=== PATIENT | male | born 1990 | race Caucasian/White ===

== ENCOUNTER 2016-07-10 16:13 | Inpatient (IN) | payer OTHER ==
[2016-07-10 17:08] VITALS: BMI 22.1
--- NOTE | 2016-07-10 18:07 | HP ---
COWS - Scale Resting Pulse: 0= [place] 80 or Below Sweatin= Chills/Flushing Restless Observation: 1= Difficult to Sit Still Pupil Size: 1= Pupils >than Normal Bone or Joint Aches: 1= Mild Discomfort Runny Nose/ Eye Tearin= Nasal Congestion GI Upset > 30mins: 2= Nausea/Diarrhea Tremor Observation: 2= Slight Tremor Visible Yawning Observation: 0= None Anxiety or Irritability: 2=Irritable/Anxious Goose Flesh Skin: 3=Piloerection COWS Score: 14 Admission ROS [facility] Chief Complaint: withdrawal sx Allergies/Adverse Reactions: Allergies Allergy/AdvReac Type Severity Reaction Status Date / Time No Known Allergies Allergy Verified 07/10/16 18:05 History of Present Illness: 25 years old male with long history of opiate nicotine dependence has muscle cramping and anxiety is admitted to detox Exam Limitations: No Limitations - Ebola screening Have you traveled outside of the country in the last 21 days: No Have you had contact with anyone from an Ebola affected area: No Have you been sick,other than usual withdrawal symptoms: No Do you have a fever: No - Review of Systems Constitutional: Chills, Loss of Appetite, Changes in sleep, Unintentional Wgt. Loss, Unexplained wgt Loss EENT: reports: No Symptoms Reported Respiratory: reports: SOB with Exertion, Productive cough (whitish) Cardiac: reports: No Symptoms Reported GI: reports: Diarrhea, Nausea, Poor Appetite, Poor Fluid Intake, Abdominal cramping : reports: No Symptoms Reported Musculoskeletal: reports: Back Pain, Joint Pain, Muscle Pain, Neck Pain Integumentary: reports: No Symptoms Reported Neuro: reports: Tremors Endocrine: reports: No Symptoms Reported Hematology: reports: No Symptoms Reported Psychiatric: reports: Judgement Intact, Orientated x3, Anxious Other Systems: Reviewed and Negative Patient History - Patient Medical History Hx Anemia: No Hx Asthma: No Hx Chronic Obstructive Pulmonary Disease (COPD): No Hx Cancer: No Hx Cardiac Disorders: No Hx Congestive Heart Failure: No Hx Hypertension: No Hx Hypercholesterolemia: No Hx Pacemaker: No HX Cerebrovascular Accident: No Hx Seizures: No Hx Dementia: No Hx Diabetes: No Hx Gastrointestinal Disorders: No Hx Liver Disease: No Hx Genitourinary Disorders: No Hx Sexually Transmitted Disorders: No Hx Renal Disease (ESRD): No Hx Thyroid Disease: No Hx Human Immunodeficiency Virus (HIV): No Hx Hepatitis C: No Hx Depression: Yes (anxiety) Hx Suicide Attempt: No Hx Bipolar Disorder: No Hx Schizophrenia: No - Patient Surgical History Past Surgical History: No Hx Neurologic Surgery: No Hx Cataract Extraction: No Hx Cardiac Surgery: No Hx Lung Surgery: No Hx Breast Surgery: No Hx Breast Biopsy: No Hx Abdominal Surgery: No Hx Appendectomy: No Hx Cholecystectomy: No Hx Genitourinary Surgery: No Hx Orthopedic Surgery: No - PPD History Previous Implant?: Yes Documented Results: Negative w/proof Implanted On Prior R Admission?: Yes Date: 03/15/15 PPD to be Administered?: Yes - Smoking Cessation Smoking history: Current every day smoker Have you smoked in the past 12 months: Yes Aproximately how many cigarettes per day: 10 Cigars Per Day: 0 Hx Chewing Tobacco Use: No Initiated information on smoking cessation: Yes 'Breaking Loose' booklet given: 07/10/16 - Substance & Tx. History Hx Alcohol Use: No Hx Substance Use: Yes Substance Use Type: Opiates Hx Substance Use Treatment: Yes - Substances Abused Heroin Route: Inhalation Frequency: Daily Amount used: 10 bags Age of first use: 22 Date of Last Use: 07/09/16 Family Disease History - Family Disease History Family Disease History: Diabetes: Mother, Heart Disease: Father (stents), Other : Brother (opiate) Admission Physical Exam BHS - Vital Signs Vital Signs: Vital Signs - 24 hr 07/10/16 17:05 Temperature 98.5 F Pulse Rate 173 H Respiratory 20 Rate Blood Pressure 108/61 - Physical General Appearance: Yes: Appropriately Dressed, Mild Distress, Thin, Tremorous, Irritable, Sweating, Anxious HEENTM: Yes: Hearing grossly Normal, Normal ENT Inspection, Normocephalic, Normal Voice Respiratory: Yes: Chest Non-Tender, Lungs Clear, Normal Breath Sounds, No Respiratory Distress, No Accessory Muscle Use Neck: Yes: Supple, Trachea in good position Breast: Yes: Breasts Symetrical Cardiology: Yes: Regular Rhythm, S1, S2, Tachycardia Abdominal: Yes: Non Tender, Soft, Increased Bowel Sounds Genitourinary: Yes: Within Normal Limits Back: Yes: Normal Inspection Musculoskeletal: Yes: full range of Motion, Gait Steady Extremities: Yes: Normal Range of Motion, Non-Tender, Tremors Neurological: Yes: Fully Oriented, Alert, Motor Strength 5/5, Normal Response, Depressed Affect Integumentary: Yes: Warm, Clammy, Track Power (right and left inner elbows) Lymphatic: Yes: Within Normal Limits - Diagnostic (1) Anxiety Current Visit: Yes Status: Suspected (2) Nicotine dependence Current Visit: Yes Status: Acute Qualifiers: Nicotine product type: cigarettes Substance use status: in withdrawal Qualified Code(s): F17.213 - Nicotine dependence, cigarettes, with withdrawal (3) Opioid dependence with withdrawal Current Visit: Yes Status: Acute (4) Weight loss Current Visit: Yes Status: Acute Cleared for Admission [facility] - Detox or Rehab [facility] Level of Care: Medically Managed Detox Regimen/Protocol: Methadone [facility] Breath Alcohol Content Breath Alcohol Content: 0 Urine Drug Screen - Results Drug Screen Negative: No Urine Drug Screen Results: OPI-Opiates
[2016-07-10] MEDS ORDERED: guaiFENesin/D-METHORPHAN HB 10 ML UNIT-DOSE CUPS PO PRN (18:16)
[2016-07-10] MEDS ORDERED: ACETAMINOPHEN 325 MG TABLET (FP) PO PRN (18:16)
[2016-07-10] MEDS ORDERED: MAG HYDROX/AL HYDROX/SIMETH 30 ML UNIT-DOSE CUP PO PRN (18:16)
[2016-07-10] MEDS ORDERED: MENTHOL/PHENOL 1 EACH UD MM PRN (18:16)
[2016-07-10] MEDS ORDERED: IBUPROFEN 400 MG TABLET (FP) PO PRN (18:16)
[2016-07-10] MEDS ORDERED: METHADONE HCL 10 MG TABLET (FOR DETOX USE ONLY) PO ONE ×2 (18:16→23:00)
[2016-07-10] MEDS ORDERED: MAGNESIUM HYDROX 2400MG/30ML ORAL SUSPENSION 30 ML CUP PO PRN (18:16)
[2016-07-10] MEDS ORDERED: MAGNESIUM CITRATE 300 ML BOTTLE PO PRN (18:16)
[2016-07-10] MEDS ORDERED: diphenhydrAMINE HCL 50 MG CAPSULE PO PRN (18:16)
[2016-07-10] MEDS ORDERED: P-EPHED 60MG/TRIPROLIDI 2.5MG TABLET PO PRN (18:16)
[2016-07-10] MEDS ORDERED: LOPERAMIDE HCL 2 MG CAPSULE PO PRN (18:16)
[2016-07-10] MEDS: diazePAM 5 MG TABLET PO PRN (19:05)
[2016-07-10] MEDS: CYCLOBENZAPRINE HCL 10 MG TABLET (FP) PO SCH (19:06)
[2016-07-10] MEDS: THIAMINE HCL 100 MG TABLET (FP) PO SCH (23:00)
[2016-07-11] MEDS: CYCLOBENZAPRINE HCL 10 MG TABLET (FP) PO SCH ×3 (03:40→18:02)
[2016-07-11] MEDS: diazePAM 5 MG TABLET PO PRN ×4 (05:20→20:56)
[2016-07-11] MEDS: NICOTINE POLACRILEX 2 MG GUM BC PRN (09:23)
[2016-07-11 09:50] LABS: MCH 28.5 pg (25.7-33.7); MCHC 33.4 g/dl (32.0-35.9); MEAN CELL VOLUME 85.3 fl (80-96); MEAN PLT VOLUME 9.1 fl (7.5-11.1); PLATELET COUNT 234 K/MM3 (134-434); RDW 13.5 % (11.9-15.9); WHITE BLOOD COUNT 7.4 K/mm3 (4.0-10.0)
[2016-07-11] MEDS ORDERED: METHADONE HCL 10 MG TABLET (FOR DETOX USE ONLY) PO ONE (10:00)
[2016-07-11] MEDS: PRENATAL VITAMINS W/ FOLIC ACID TABLET (FP) PO SCH (10:57)
[2016-07-11] MEDS: NICOTINE 14 MG/24 HOURS TOPICAL PATCH TD SCH (10:58)
--- NOTE | 2016-07-11 11:48 | PN ---
S COWS - Scale Resting Pulse: 0= [place] 80 or Below Sweatin= Chills/Flushing Restless Observation: 3= Extraneous Movement Pupil Size: 2= Moderately Dilated Bone or Joint Aches: 4=Acute Joint/Muscle Pain Runny Nose/ Eye Tearin= Nasal Congestion GI Upset > 30mins: 1= Stomach Cramp Tremor Observation of Outstretched Hands: 2= Slight Tremor Visible Yawning Observation: 1= 1-2x During Session Anxiety or Irritability: 1=Feels Anxious/Irritable Goose Flesh Skin: 0=Smooth Skin COWS Score: 16 BHS Progress Note (SOAP) Subjective: ANXIETY,SWEATS,FATIGUE. Objective: 07/11/16 11:49 Vital Signs Temperature 95.9 F L 07/11/16 06:32 Pulse Rate 61 07/11/16 10:19 Respiratory Rate 18 07/11/16 10:19 Blood Pressure 107/60 07/11/16 10:19 O2 Sat by Pulse Oximetry (%) Laboratory Last Values WBC 7.4 K/mm3 (4.0-10.0) 07/11/16 07:00 RBC 5.29 M/mm3 (4.00-5.60) 07/11/16 07:00 Hgb 15.1 GM/dL (11.7-16.9) 07/11/16 07:00 Hct 45.1 % (35.4-49) 07/11/16 07:00 MCV 85.3 fl (80-96) 07/11/16 07:00 MCHC 33.4 g/dl (32.0-35.9) 07/11/16 07:00 RDW 13.5 % (11.9-15.9) 07/11/16 07:00 Plt Count 234 K/MM3 (134-434) D 07/11/16 07:00 MPV 9.1 fl (7.5-11.1) D 07/11/16 07:00 RPR Titer Nonreactive (NONREACTIVE) 07/11/16 07:00 Assessment: 07/11/16 11:49 WITHDRAWAL SX Plan: CONTINUE DETOX
[2016-07-11 12:04] LABS: ALBUMIN 3.7 g/dl (3.4-5.0); ALK PHOS 104 U/L (45-117); ANION GAP 8 (8-16); BILIRUBIN,TOTAL 0.2 mg/dL (0.2-1.0); CALCIUM 8.8 mg/dL (8.5-10.1); CO2 28 mmol/L (21-32); CREATININE 0.9 mg/dL (0.7-1.3); GLUCOSE,RANDOM 111 mg/dL (74-106); SGOT/AST 14 U/L (15-37); SGPT/ALT 20 U/L (12-78); TOT PROT 6.8 g/dl (6.4-8.2)
[2016-07-11 14:13] LABS: URINE APPEARANCE CLEAR; URINE BILIRUBIN NEGATIVE (NEGATIVE); URINE BLOOD NEGATIVE (NEGATIVE); URINE COLOR LTYELLOW; URINE GLUCOSE (UA) NEGATIVE (NEGATIVE); URINE KETONE NEGATIVE (NEGATIVE); URINE LEUK ESTERASE NEGATIVE (NEGATIVE); URINE NITRITE NEGATIVE (NEGATIVE); URINE PROTEIN NEGATIVE (NEGATIVE); URINE UROBILINOGEN NEGATIVE E.U./dl (0.2-1.0)
--- NOTE | 2016-07-11 14:34 | CONSULT ---
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 Smoking history: Current every day smoker. Have you smoked in the past 12 months: Yes. Aproximately how many cigarettes per day: 10. Cigars Per Day: 0. Hx Chewing Tobacco Use: No. Initiated information on smoking cessation: Yes. 'Breaking Loose' booklet given : 07/10/16. - Substance & Tx. History. Hx Alcohol Use: No. Hx Substance Use: Yes. Substance Use Type: Opiates. Hx Substance Use Treatment: Yes. - Substances Abused. Heroin. Route: Inhalation. Frequency: Daily. Amount used: 10 bags. Age of first use: 22. Date of Last Use: 07/09/16 Medical History: Reports being in excellent health. Smokes 10 cigarettes daily Psychiatric History: Denies history of previous psychiatric treatment Mental Status Exam - Mental Status Exam Alert and Oriented to: Time, Place, Person Cognitive Function: Fair Patient Appearance: Well Groomed Mood: Hopeful, Euthymic Affect: Appropriate Patient Behavior: Cooperative Speech Pattern: Clear Voice Loudness: Normal Thought Process: Intact Thought Disorder: Not Present Hallucinations: Denies Suicidal Ideation: Denies Homicidal Ideation: Denies Insight/Judgement: Poor Sleep: Poorly Appetite: Good Muscle strength/Tone: Normal Gait/Station: Normal Psychiatric Findings - Problem List ([place] 1, 2,3) (1) Opioid dependence with withdrawal Current Visit: Yes Status: Acute (2) Nicotine dependence Current Visit: Yes Status: Acute Qualifiers: Nicotine product type: cigarettes Substance use status: in withdrawal Qualified Code(s): F17.213 - Nicotine dependence, cigarettes, with withdrawal (3) Substance-induced sleep disorder Current Visit: Yes Status: Acute - Initial Treatment Plan Initial Treatment Plan: 1) Start Zolpidem 10 mg po HS prn for insomnia. Benefits vs Risks of medication discussed with patient and he agreed to try it. 2) Continue inpatient detoxification
[2016-07-11] MEDS: ZOLPIDEM TARTRATE 10 MG TABLET (PARK CARE ONLY) PO PRN (22:42)
[2016-07-11] MEDS: THIAMINE HCL 100 MG TABLET (FP) PO SCH (22:42)
[2016-07-12] MEDS: CYCLOBENZAPRINE HCL 10 MG TABLET (FP) PO SCH ×3 (04:12→22:38)
[2016-07-12] MEDS: diazePAM 5 MG TABLET PO PRN ×4 (05:18→22:37)
[2016-07-12] MEDS ORDERED: METHADONE HCL 5 MG TABLET (FOR DETOX USE ONLY) PO ONE (10:00)
[2016-07-12] MEDS: PRENATAL VITAMINS W/ FOLIC ACID TABLET (FP) PO SCH (10:45)
[2016-07-12] MEDS: NICOTINE 14 MG/24 HOURS TOPICAL PATCH TD SCH (10:46)
--- NOTE | 2016-07-12 12:31 | EKG ---
Test Reason : Blood Pressure : / mmHG Vent. Rate : 058 BPM Atrial Rate : 058 BPM P-R Int : 150 ms QRS Dur : 084 ms QT Int : 416 ms P-R-T Axes : 047 033 036 degrees QTc Int : 408 ms SINUS BRADYCARDIA OTHERWISE NORMAL ECG NO PREVIOUS ECGS AVAILABLE Confirmed by TALON GAGE MD ([id number]) on 07/12/2016 12:30:32 PM Referred By: Confirmed By:TALON GAGE MD
--- NOTE | 2016-07-12 14:44 | PN ---
BHS COWS - Scale Resting Pulse: 0= [place] 80 or Below Sweatin=Flushed/Facial Moisture Restless Observation: 1= Difficult to Sit Still Pupil Size: 0= Normal to Room Light Bone or Joint Aches: 2= Severe Diffuse Aches Runny Nose/ Eye Tearin= Runny Nose/Eyes GI Upset > 30mins: 0= None Tremor Observation of Outstretched Hands: 2= Slight Tremor Visible Yawning Observation: 1= 1-2x During Session Anxiety or Irritability: 2=Irritable/Anxious Goose Flesh Skin: 3=Piloerection COWS Score: 15 BHS Progress Note (SOAP) Subjective: Sweating, Tremors, Body Aches. Objective: PT. A & O X 3, OBSERVED AMBULATING ON UNIT. 07/12/16 14:43 Vital Signs Temperature 97.8 F 07/12/16 13:26 Pulse Rate 77 07/12/16 13:26 Respiratory Rate 18 07/12/16 13:26 Blood Pressure 110/64 07/12/16 13:26 O2 Sat by Pulse Oximetry (%) Laboratory Last Values WBC 7.4 K/mm3 (4.0-10.0) 07/11/16 07:00 RBC 5.29 M/mm3 (4.00-5.60) 07/11/16 07:00 Hgb 15.1 GM/dL (11.7-16.9) 07/11/16 07:00 Hct 45.1 % (35.4-49) 07/11/16 07:00 MCV 85.3 fl (80-96) 07/11/16 07:00 MCHC 33.4 g/dl (32.0-35.9) 07/11/16 07:00 RDW 13.5 % (11.9-15.9) 07/11/16 07:00 Plt Count 234 K/MM3 (134-434) D 07/11/16 07:00 MPV 9.1 fl (7.5-11.1) D 07/11/16 07:00 Sodium 142 mmol/L (136-145) 07/11/16 07:00 Potassium 5.1 mmol/L (3.5-5.1) 07/11/16 07:00 Chloride 106 mmol/L (98-107) 07/11/16 07:00 Carbon Dioxide 28 mmol/L (21-32) 07/11/16 07:00 Anion Gap 8 (8-16) 07/11/16 07:00 BUN 18 mg/dL (7-18) D 07/11/16 07:00 Creatinine 0.9 mg/dL (0.7-1.3) 07/11/16 07:00 Creat Clearance w eGFR > 60 (>60) 07/11/16 07:00 Random Glucose 111 mg/dL (74-106) H 07/11/16 07:00 Calcium 8.8 mg/dL (8.5-10.1) 07/11/16 07:00 Total Bilirubin 0.2 mg/dL (0.2-1.0) D 07/11/16 07:00 AST 14 U/L (15-37) L D 07/11/16 07:00 ALT 20 U/L (12-78) D 07/11/16 07:00 Alkaline Phosphatase 104 U/L (45-117) D 07/11/16 07:00 Total Protein 6.8 g/dl (6.4-8.2) 07/11/16 07:00 Albumin 3.7 g/dl (3.4-5.0) 07/11/16 07:00 Urine Color Ltyellow 07/11/16 11:40 Urine Appearance Clear 07/11/16 11:40 Urine pH 8.0 (5.0-8.0) 07/11/16 11:40 Ur Specific [place] 1.019 (1.001-1.035) 07/11/16 11:40 Urine Protein Negative (NEGATIVE) 07/11/16 11:40 Urine Glucose (UA) Negative (NEGATIVE) 07/11/16 11:40 Urine Ketones Negative (NEGATIVE) 07/11/16 11:40 Urine Blood Negative (NEGATIVE) 07/11/16 11:40 Urine Nitrite Negative (NEGATIVE) 07/11/16 11:40 Urine Bilirubin Negative (NEGATIVE) 07/11/16 11:40 Urine Urobilinogen Negative E.U./dl (0.2-1.0) 07/11/16 11:40 Ur Leukocyte Esterase Negative (NEGATIVE) 07/11/16 11:40 RPR Titer Nonreactive (NONREACTIVE) 07/11/16 07:00 Hepatitis C Antibody 0.2 s/co ratio (0.0-0.9) 07/10/16 07:00 LABS NOTED. Assessment: 07/12/16 14:43 WITHDRAWAL SYMPTOMS. Plan: CONTINUE DETOX. ADVISED PATIENT TO FOLLOW-UP WITH FINANCIAL MANAGER / REHAB MEDICAL PROVIDER AFTER DISCHARGER FROM DETOX FOR GENERAL MEDICAL ASSESSMENT AND FOR ABNORMAL ADMISSION LAB VALUES.
[2016-07-12] MEDS: ZOLPIDEM TARTRATE 10 MG TABLET (PARK CARE ONLY) PO PRN (22:37)
[2016-07-12] MEDS: THIAMINE HCL 100 MG TABLET (FP) PO SCH (22:37)
[2016-07-13] MEDS: diazePAM 5 MG TABLET PO PRN ×3 (05:37→17:16)
[2016-07-13] MEDS: CYCLOBENZAPRINE HCL 10 MG TABLET (FP) PO SCH ×3 (05:37→22:29)
[2016-07-13] MEDS ORDERED: METHADONE HCL 5 MG TABLET (FOR DETOX USE ONLY) PO ONE (10:00)
[2016-07-13] MEDS: PRENATAL VITAMINS W/ FOLIC ACID TABLET (FP) PO SCH (10:44)
[2016-07-13] MEDS: NICOTINE 14 MG/24 HOURS TOPICAL PATCH TD SCH (12:49)
[2016-07-13] MEDS: NICOTINE POLACRILEX 2 MG GUM BC PRN (14:12)
--- NOTE | 2016-07-13 15:30 | PN ---
S Progress Note (SOAP) Subjective: Nausea, sweating, anxious, interrupted sleep Objective: 07/13/16 15:29 Last Vital Signs Temp Pulse Resp BP Pulse Ox 96.0 F L 68 18 106/67 07/13/16 13:53 07/13/16 13:53 07/13/16 13:53 07/13/16 13:53 Laboratory Tests 07/10/16 07/11/16 07/11/16 07:00 07:00 07:00 WBC 7.4 RBC 5.29 Hgb 15.1 Hct 45.1 MCV 85.3 MCHC 33.4 RDW 13.5 Plt Count 234 D MPV 9.1 D Sodium 142 Potassium 5.1 Chloride 106 Carbon Dioxide 28 Anion Gap 8 BUN 18 D Creatinine 0.9 Creat Clearance w eGFR > 60 Random Glucose 111 H Calcium 8.8 Total Bilirubin 0.2 D AST 14 L D ALT 20 D Alkaline Phosphatase 104 D Total Protein 6.8 Albumin 3.7 Urine Color Urine Appearance Urine pH Ur Specific [place] Urine Protein Urine Glucose (UA) Urine Ketones Urine Blood Urine Nitrite Urine Bilirubin Urine Urobilinogen Ur Leukocyte Esterase RPR Titer Hepatitis C Antibody 0.2 07/11/16 07/11/16 07:00 11:40 WBC RBC Hgb Hct MCV MCHC RDW Plt Count MPV Sodium Potassium Chloride Carbon Dioxide Anion Gap BUN Creatinine Creat Clearance w eGFR Random Glucose Calcium Total Bilirubin AST ALT Alkaline Phosphatase Total Protein Albumin Urine Color Ltyellow Urine Appearance Clear Urine pH 8.0 Ur Specific [place] 1.019 Urine Protein Negative Urine Glucose (UA) Negative Urine Ketones Negative Urine Blood Negative Urine Nitrite Negative Urine Bilirubin Negative Urine Urobilinogen Negative Ur Leukocyte Esterase Negative RPR Titer Nonreactive Hepatitis C Antibody Labs noted Assessment: 07/13/16 15:29 Withdrawal symptoms Plan: Continue detox
[2016-07-13] MEDS: THIAMINE HCL 100 MG TABLET (FP) PO SCH (22:29)
[2016-07-13] MEDS: ZOLPIDEM TARTRATE 10 MG TABLET (PARK CARE ONLY) PO PRN (22:29)
[2016-07-14] MEDS: CYCLOBENZAPRINE HCL 10 MG TABLET (FP) PO SCH ×3 (05:37→22:30)
[2016-07-14] MEDS ORDERED: METHADONE HCL 10 MG TABLET (FOR DETOX USE ONLY) PO ONE (10:00)
[2016-07-14] MEDS: PRENATAL VITAMINS W/ FOLIC ACID TABLET (FP) PO SCH (10:46)
[2016-07-14] MEDS: NICOTINE 14 MG/24 HOURS TOPICAL PATCH TD SCH (10:46)
[2016-07-14] MEDS: NICOTINE POLACRILEX 2 MG GUM BC PRN (12:05)
--- NOTE | 2016-07-14 13:05 | PN ---
BHS Progress Note (SOAP) Subjective: Sweating,interrupted sleep,restless Objective: 07/14/16 13:04 Vital Signs - 8 hr 07/14/16 07/14/16 07/14/16 06:29 09:48 12:58 Temperature 96.3 F L 97 F L 96 F L Pulse Rate 56 L 72 69 Respiratory 16 18 18 Rate Blood Pressure 101/64 109/63 109/65 Laboratory Tests 07/10/16 07/11/16 07/11/16 07:00 07:00 07:00 WBC 7.4 RBC 5.29 Hgb 15.1 Hct 45.1 MCV 85.3 MCHC 33.4 RDW 13.5 Plt Count 234 D MPV 9.1 D Sodium 142 Potassium 5.1 Chloride 106 Carbon Dioxide 28 Anion Gap 8 BUN 18 D Creatinine 0.9 Creat Clearance w eGFR > 60 Random Glucose 111 H Calcium 8.8 Total Bilirubin 0.2 D AST 14 L D ALT 20 D Alkaline Phosphatase 104 D Total Protein 6.8 Albumin 3.7 Urine Color Urine Appearance Urine pH Ur Specific [place] Urine Protein Urine Glucose (UA) Urine Ketones Urine Blood Urine Nitrite Urine Bilirubin Urine Urobilinogen Ur Leukocyte Esterase RPR Titer Hepatitis C Antibody 0.2 07/11/16 07/11/16 07:00 11:40 WBC RBC Hgb Hct MCV MCHC RDW Plt Count MPV Sodium Potassium Chloride Carbon Dioxide Anion Gap BUN Creatinine Creat Clearance w eGFR Random Glucose Calcium Total Bilirubin AST ALT Alkaline Phosphatase Total Protein Albumin Urine Color Ltyellow Urine Appearance Clear Urine pH 8.0 Ur Specific [place] 1.019 Urine Protein Negative Urine Glucose (UA) Negative Urine Ketones Negative Urine Blood Negative Urine Nitrite Negative Urine Bilirubin Negative Urine Urobilinogen Negative Ur Leukocyte Esterase Negative RPR Titer Nonreactive Hepatitis C Antibody labs noted Assessment: 07/14/16 13:04 Withdrawal sx. Plan: Continue detox
[2016-07-14] MEDS: THIAMINE HCL 100 MG TABLET (FP) PO SCH (22:30)
[2016-07-14] MEDS: ZOLPIDEM TARTRATE 10 MG TABLET (PARK CARE ONLY) PO PRN (22:30)
[2016-07-15] MEDS: CYCLOBENZAPRINE HCL 10 MG TABLET (FP) PO SCH (05:24)
[2016-07-15] MEDS ORDERED: METHADONE HCL 5 MG TABLET (FOR DETOX USE ONLY) PO ONE (06:00)
[2016-07-15 06:15] VITALS: BP 114/73; PULSE 53; TEMP 96
--- NOTE | 2016-07-15 09:06 | DS ---
[facility] Detox Discharge Summary Admission Date: 07/10/16 Discharge Date: 07/14/16 - History Present History: Opioid Dependence Pertinent Past History: Denies - Physical Exam Results Vital Signs: Vital Signs Temperature 96.0 F L 07/15/16 06:14 Pulse Rate 53 L 07/15/16 06:14 Respiratory Rate 16 07/15/16 06:14 Blood Pressure 114/73 07/15/16 06:14 O2 Sat by Pulse Oximetry (%) Pertinent Admission Physical Exam Findings: Withdrawal sx. Laboratory Last Values WBC 7.4 K/mm3 (4.0-10.0) 07/11/16 07:00 RBC 5.29 M/mm3 (4.00-5.60) 07/11/16 07:00 Hgb 15.1 GM/dL (11.7-16.9) 07/11/16 07:00 Hct 45.1 % (35.4-49) 07/11/16 07:00 MCV 85.3 fl (80-96) 07/11/16 07:00 MCHC 33.4 g/dl (32.0-35.9) 07/11/16 07:00 RDW 13.5 % (11.9-15.9) 07/11/16 07:00 Plt Count 234 K/MM3 (134-434) D 07/11/16 07:00 MPV 9.1 fl (7.5-11.1) D 07/11/16 07:00 Sodium 142 mmol/L (136-145) 07/11/16 07:00 Potassium 5.1 mmol/L (3.5-5.1) 07/11/16 07:00 Chloride 106 mmol/L (98-107) 07/11/16 07:00 Carbon Dioxide 28 mmol/L (21-32) 07/11/16 07:00 Anion Gap 8 (8-16) 07/11/16 07:00 BUN 18 mg/dL (7-18) D 07/11/16 07:00 Creatinine 0.9 mg/dL (0.7-1.3) 07/11/16 07:00 Creat Clearance w eGFR > 60 (>60) 07/11/16 07:00 Random Glucose 111 mg/dL (74-106) H 07/11/16 07:00 Calcium 8.8 mg/dL (8.5-10.1) 07/11/16 07:00 Total Bilirubin 0.2 mg/dL (0.2-1.0) D 07/11/16 07:00 AST 14 U/L (15-37) L D 07/11/16 07:00 ALT 20 U/L (12-78) D 07/11/16 07:00 Alkaline Phosphatase 104 U/L (45-117) D 07/11/16 07:00 Total Protein 6.8 g/dl (6.4-8.2) 07/11/16 07:00 Albumin 3.7 g/dl (3.4-5.0) 07/11/16 07:00 Urine Color Ltyellow 07/11/16 11:40 Urine Appearance Clear 07/11/16 11:40 Urine pH 8.0 (5.0-8.0) 07/11/16 11:40 Ur Specific [place] 1.019 (1.001-1.035) 07/11/16 11:40 Urine Protein Negative (NEGATIVE) 07/11/16 11:40 Urine Glucose (UA) Negative (NEGATIVE) 07/11/16 11:40 Urine Ketones Negative (NEGATIVE) 07/11/16 11:40 Urine Blood Negative (NEGATIVE) 07/11/16 11:40 Urine Nitrite Negative (NEGATIVE) 07/11/16 11:40 Urine Bilirubin Negative (NEGATIVE) 07/11/16 11:40 Urine Urobilinogen Negative E.U./dl (0.2-1.0) 07/11/16 11:40 Ur Leukocyte Esterase Negative (NEGATIVE) 07/11/16 11:40 RPR Titer Nonreactive (NONREACTIVE) 07/11/16 07:00 Hepatitis C Antibody 0.2 s/co ratio (0.0-0.9) 07/10/16 07:00 labs noted - Treatment Hospital Course: Detox Protocol Followed, Detoxed Safely, Responded well, Discharged Condition Good, Rehab Referral Accepted Patient has Accepted a Rehab Referral to: [facility] in [facility] - Medication Discharge Medications: Ambulatory Orders NK [No Known Home Medication] 07/10/16 - Diagnosis (1) Drug-induced mood disorder Status: Acute (2) Nicotine dependence Status: Acute Qualifiers: Nicotine product type: cigarettes Substance use status: in withdrawal Qualified Code(s): F17.213 - Nicotine dependence, cigarettes, with withdrawal (3) Opioid dependence with withdrawal Status: Acute (4) Substance-induced sleep disorder Status: Acute - AMA Did Patient Leave Against Medical Advice: No
== END 2016-07-15 07:00 | disposition home or self-care (01) | DRG 773 ==
LOC: YASAS 16:13 → Y3N 18:02
PROVIDERS: ADMIT Internal Medicine; ATTEND Internal Medicine
PROC: HZ2ZZZZ Detoxification Services for Substance Abuse Treatment (ICD-10-PCS; principal; 2016-07-15)
DX: F11.23 Opioid dependence with withdrawal (principal); F17.213 Nicotine dependence, cigarettes, with withdrawal; F19.24 Other psychoactive substance dependence with psychoactive substance-induced mood disorder; F19.282 Other psychoactive substance dependence with psychoactive substance-induced sleep disorder; F41.9 Anxiety disorder, unspecified; R63.4 Abnormal weight loss; Z68.22 Body mass index [BMI] 22.0-22.9, adult
CPT/HCPCS: 36415; 80053; 81003; 85027; 86593; 93005; 93010

== ENCOUNTER 2017-08-27 14:17 | Inpatient (IN) | payer OTHER ==
[2017-08-27 16:00] VITALS: BMI 19.0
--- NOTE | 2017-08-27 18:01 | HP ---
Admission ROS [facility] Chief Complaint: " I want to get clean, I don't to continue this lifestyle." Allergies/Adverse Reactions: Allergies Allergy/AdvReac Type Severity Reaction Status Date / Time orange juice Allergy Verified 08/27/17 16:36 History of Present Illness: 26 yo male with hx of opioid, cocaine and nicotine dependence is here for rehab. As per patient he is currently under going a "drug court case" he slipped up and use heroin and was imprisoned 08/20/17 to 08/24/17. Reports while in jail he was detox with librium from his clonazepam. PMHX: anxiety, denies other medical problems. Denies suicidal / homicidal ideation or suicide attempts. Last detox while in care home over the weekend. Longest period of sobriety 2 years. Currently on Suboxone maintenance therapy, last 16mg a day, last medicated today. This report was requested by: Priti Calzada | Reference #: [id number] Others' Prescriptions Patient Name: Gregg Mccartney Date: 1990 Address: [address] [place], [place] [id number] Sex: Male Rx Written Rx Dispensed Drug Quantity Days Supply Prescriber Name 08/21/2017 08/21/2017 chlordiazepoxide 25 mg capsule 26 5 Kaden Murdock MD Patient Name: Gregg Mccartney Date: 1990 Address: [address] [place] [id number] Sex: Male Rx Written Rx Dispensed Drug Quantity Days Supply Prescriber Name 08/17/2017 08/17/2017 suboxone 8 mg-2 mg sl film 56 28 Mena Sellers DO 07/25/2017 07/29/2017 clonazepam 1 mg tablet 30 30 Guillermo Dougherty (BARREL RIFLER) 07/27/2017 07/29/2017 suboxone 8 mg-2 mg sl film 42 21 Mena Sellers DO 07/13/2017 07/14/2017 suboxone 8 mg-2 mg sl film 28 14 Mena Sellers DO 06/29/2017 06/29/2017 suboxone 8 mg-2 mg sl film 28 14 Mena Sellers DO 06/27/2017 06/29/2017 clonazepam 1 mg tablet 30 30 Guillermo Dougherty (BARREL RIFLER) 06/15/2017 06/15/2017 suboxone 8 mg-2 mg sl film 28 14 Heshara Mena L DO 06/01/2017 06/01/2017 suboxone 8 mg-2 mg sl film 28 14 Heshara Mena L DO 06/01/2017 06/01/2017 clonazepam 1 mg tablet 30 30 Guillermo Dougherty (BARREL RIFLER) 04/21/2017 05/04/2017 suboxone 8 mg-2 mg sl film 60 30 Baron Villavicencio MD 04/21/2017 04/30/2017 clonazepam 1 mg tablet 30 30 Baron Villavicencio MD 04/07/2017 04/07/2017 suboxone 8 mg-2 mg sl film 56 28 Kourtney Sellerserie Tika DO 04/03/2017 04/03/2017 clonazepam 1 mg tablet 30 30 Guillermo Dougherty (BARREL RIFLER) 03/23/2017 03/23/2017 suboxone 8 mg-2 mg sl film 30 15 HeKourtney olmedoerie L DO 03/09/2017 03/09/2017 suboxone 8 mg-2 mg sl film 28 14 Heshara Mena L DO 03/06/2017 03/06/2017 clonazepam 1 mg tablet 60 30 Guillermo Dougherty (BARREL RIFLER) 02/23/2017 02/23/2017 suboxone 8 mg-2 mg sl film 28 14 Heshara Mena L DO 02/09/2017 02/09/2017 suboxone 8 mg-2 mg sl film 28 14 Kourtney Sellerserie L DO 02/06/2017 02/06/2017 clonazepam 0.5 mg tablet 60 30 Guillermo oDugherty (BARREL RIFLER) 01/26/2017 01/26/2017 suboxone 8 mg-2 mg sl film 28 14 Heemstra Mena L DO 01/12/2017 01/13/2017 suboxone 8 mg-2 mg sl film 14 14 Heemstra Mena L DO 12/29/2016 12/29/2016 suboxone 8 mg-2 mg sl film 14 14 Heemstra Mena L DO 12/29/2016 12/29/2016 clonazepam 0.5 mg tablet 28 14 Heshara Mena L DO 12/16/2016 12/16/2016 clonazepam 0.5 mg tablet 28 14 Mena Sellers DO 12/16/2016 12/16/2016 suboxone 8 mg-2 mg sl film 14 14 Mena Sellers DO 12/08/2016 12/08/2016 clonazepam 0.5 mg tablet 16 8 Mena Sellers DO 12/01/2016 12/01/2016 clonazepam 0.5 mg tablet 14 7 Mena Sellers DO 12/01/2016 12/01/2016 suboxone 8 mg-2 mg sl film 14 14 Mena Sellers DO 11/24/2016 11/26/2016 clonazepam 0.5 mg tablet 14 7 Mena Sellers DO 11/17/2016 11/17/2016 suboxone 8 mg-2 mg sl film 14 14 Mena Sellers DO 11/03/2016 11/05/2016 suboxone 8 mg-2 mg sl film 14 14 Mena Sellers DO 10/20/2016 10/22/2016 suboxone 8 mg-2 mg sl film 14 14 Mena Sellers DO 10/06/2016 10/07/2016 suboxone 8 mg-2 mg sl film 11 11 Mena Sellers DO 09/29/2016 09/29/2016 suboxone 8 mg-2 mg sl film 7 7 Mena Sellers DO 09/15/2016 09/15/2016 suboxone 8 mg-2 mg sl film 14 14 Mena Sellers DO 09/10/2016 09/10/2016 suboxone 8 mg-2 mg sl film 5 5 Mena Sellers DO 09/01/2016 09/01/2016 suboxone 8 mg-2 mg sl film 9 9 Mena Sellers DO Exam Limitations: No Limitations - Ebola screening Have you traveled outside of the country in the last 21 days: No Have you had contact with anyone from an Ebola affected area: No Have you been sick,other than usual withdrawal symptoms: No Do you have a fever: No - Review of Systems Constitutional: No Symptoms Reported EENT: reports: No Symptoms Reported Respiratory: reports: No Symptoms reported Cardiac: reports: No Symptoms Reported GI: reports: No Symptoms Reported : reports: No Symptoms Reported Musculoskeletal: reports: No Symptoms Reported Integumentary: reports: No Symptoms Reported Neuro: reports: No Symptoms reported Endocrine: reports: No Symptoms Reported Hematology: reports: No Symptoms Reported Psychiatric: reports: Orientated x3, Anxious Other Systems: Reviewed and Negative Patient History - Patient Medical History Hx Anemia: No Hx Asthma: No Hx Chronic Obstructive Pulmonary Disease (COPD): No Hx Cancer: No Hx Cardiac Disorders: No Hx Congestive Heart Failure: No Hx Hypertension: No Hx Hypercholesterolemia: No Hx Pacemaker: No HX Cerebrovascular Accident: No Hx Seizures: No Hx Dementia: No Hx Diabetes: No Hx Gastrointestinal Disorders: No Hx Liver Disease: No Hx Genitourinary Disorders: No Hx Sexually Transmitted Disorders: No Hx Renal Disease (ESRD): No Hx Thyroid Disease: No Hx Human Immunodeficiency Virus (HIV): No (last tested June 2017) Hx Hepatitis C: No Hx Depression: No Hx Suicide Attempt: No Hx Bipolar Disorder: No Hx Schizophrenia: No Other Medical History: anxiety - Patient Surgical History Past Surgical History: No Hx Neurologic Surgery: No Hx Cataract Extraction: No Hx Cardiac Surgery: No Hx Lung Surgery: No Hx Breast Surgery: No Hx Breast Biopsy: No Hx Abdominal Surgery: No Hx Appendectomy: No Hx Cholecystectomy: No Hx Genitourinary Surgery: No Hx Section: No Hx Orthopedic Surgery: No Anesthesia Reaction: No - PPD History Previous Implant?: Yes Documented Results: Negative w/proof Date: 07/12/16 PPD to be Administered?: Yes - Smoking Cessation Smoking history: Current every day smoker Have you smoked in the past 12 months: Yes Aproximately how many cigarettes per day: 10 Cigars Per Day: 0 Hx Chewing Tobacco Use: No Initiated information on smoking cessation: Yes 'Breaking Loose' booklet given: 08/27/17 - Substance & Tx. History Hx Alcohol Use: Yes Hx Substance Use: Yes Substance Use Type: Heroin Hx Substance Use Treatment: Yes ([facility] June 2016) - Substances Abused Heroin Route: Injection Frequency: 1-3 times last 30 days Amount used: 5 BAGS Age of first use: 17 Date of Last Use: 08/20/17 Cocaine Route: Inhalation Frequency: 1-3 times last 30 days Amount used: 2 HITS Age of first use: 24 Date of Last Use: 08/23/17 Family Disease History - Family Disease History Family Disease History: Diabetes: Mother, Heart Disease: Father (stents), Other : Brother (opiate) Admission Physical Exam [facility] - Vital Signs Vital Signs: Vital Signs - 24 hr 08/27/17 15:56 Temperature 98.3 F Pulse Rate 78 Respiratory 20 Rate Blood Pressure 116/68 - Physical General Appearance: Yes: No Apparent Distress, Appropriately Dressed, Thin, Anxious HEENTM: Yes: EOMI, Hearing grossly Normal, Normal ENT Inspection, Normocephalic , Normal Voice, ILDA, Pharynx Normal, Tm's normal Respiratory: Yes: Chest Non-Tender, Lungs Clear, Normal Breath Sounds, No Respiratory Distress, No Accessory Muscle Use Neck: Yes: Within Normal Limits Breast: Yes: Breast Exam Deferred Cardiology: Yes: Regular Rhythm, Regular Rate Abdominal: Yes: Normal Bowel Sounds, Non Tender, Flat, Soft Genitourinary: Yes: Within Normal Limits Back: Yes: Normal Inspection Musculoskeletal: Yes: full range of Motion, Gait Steady, Pelvis Stable Extremities: Yes: Normal Capillary Refill, Normal Inspection, Normal Range of Motion, Non-Tender Neurological: Yes: bilingual speech language pathologist II-XII NML intact, Fully Oriented, Alert, Motor Strength 5/5, Normal Mood/Affect Integumentary: Yes: Normal Color, Dry, Warm Lymphatic: Yes: Within Normal Limits - Diagnostic (1) Opioid dependence on agonist therapy Current Visit: Yes Status: Acute (2) Nicotine dependence Current Visit: No Status: Acute Qualifiers: Nicotine product type: cigarettes Substance use status: in withdrawal Qualified Code(s): F17.213 - Nicotine dependence, cigarettes, with withdrawal (3) Cocaine dependence Current Visit: Yes Status: Acute (4) Anxiety Current Visit: Yes Status: Suspected [facility] Breath Alcohol Content Breath Alcohol Content: 0 Urine Drug Screen - Results Drug Screen Negative: No Urine Drug Screen Results: CYNDI-Cocaine, OPI-Opiates, BZO-Benzodiazepines Inpatient Rehab Admission - Initial Determination Are CD services needed?: Yes Free of communicable disease: Yes Not in need of hospitalization: Yes - Rehab Admission Criteria Previous failed treatment: Yes Poor recovery environment: Yes Comorbidities: Yes Lacks judgement: Yes Patient is meeting Inpatient Rehab admission criteria:: Yes
[2017-08-27] MEDS ORDERED: hydrOXYzine PAMOATE 50 MG CAPSULE (FP) PO PRN (18:13)
[2017-08-27] MEDS ORDERED: MAGNESIUM CITRATE 300 ML BOTTLE PO PRN (18:13)
[2017-08-27] MEDS ORDERED: guaiFENesin/D-METHORPHAN HB 10 ML UNIT-DOSE CUPS PO PRN (18:13)
[2017-08-27] MEDS ORDERED: NICOTINE POLACRILEX 2 MG GUM BC PRN (18:13)
[2017-08-27] MEDS ORDERED: MENTHOL/PHENOL 1 EACH UD MM PRN (18:13)
[2017-08-27] MEDS ORDERED: IBUPROFEN 400 MG TABLET (FP) PO PRN (18:13)
[2017-08-27] MEDS ORDERED: ACETAMINOPHEN 325 MG TABLET (FP) PO PRN (18:13)
[2017-08-27] MEDS ORDERED: LOPERAMIDE HCL 2 MG CAPSULE PO PRN (18:13)
[2017-08-27] MEDS ORDERED: P-EPHED 60MG/TRIPROLIDI 2.5MG TABLET PO PRN (18:13)
[2017-08-27] MEDS ORDERED: MAGNESIUM HYDROX 2400MG/30ML ORAL SUSPENSION 30 ML CUP PO PRN (18:13)
[2017-08-27] MEDS ORDERED: TUBERCULIN PPD 5 TU/0.1ML VIAL ID ONE (20:50)
--- NOTE | 2017-08-27 20:52 | PN ---
[facility] Progress Note Note: As per nursing report patient mariselain g Trazodonr 100mg po qhs Patient atarted on Trazodone 100mg po qhs
[2017-08-27] MEDS: THIAMINE HCL 100 MG TABLET (FP) PO SCH (21:15)
[2017-08-27] MEDS: traZODone HCL 100 MG TABLET (FP) PO SCH (21:16)
[2017-08-27] MEDS ORDERED: MELATONIN 5 MG TABLETS PO PRN (22:00)
[2017-08-28] MEDS: MAG HYDROX/AL HYDROX/SIMETH 30 ML UNIT-DOSE CUP PO PRN ×2 (09:20→18:22)
[2017-08-28 09:36] LABS: HEMATOCRIT 40.1 % (35.4-49); HEMOGLOBIN 13.7 GM/dL (11.7-16.9); MCH 29.4 pg (25.7-33.7); MCHC 34.2 g/dl (32.0-35.9); MEAN PLT VOLUME 8.1 fl (7.5-11.1); PLATELET COUNT 316 K/MM3 (134-434); RBC 4.66 M/mm3 (4.00-5.60); RDW 13.4 % (11.9-15.9); WHITE BLOOD COUNT 7.5 K/mm3 (4.0-10.0)
[2017-08-28 09:44] LABS: URINE APPEARANCE SLCLOUDY; URINE BILIRUBIN NEGATIVE (<2.0 mg/dL); URINE COLOR YELLOW; URINE GLUCOSE (UA) NEGATIVE (NEGATIVE); URINE KETONE NEGATIVE (NEGATIVE); URINE LEUK ESTERASE NEGATIVE (NEGATIVE); URINE NITRITE NEGATIVE (NEGATIVE); URINE PROTEIN NEGATIVE (NEGATIVE)
[2017-08-28 09:46] LABS: CHLORIDE 108 mmol/L (98-107); POTASSIUM 4.2 mmol/L (3.5-5.1); SODIUM 142 mmol/L (136-145)
[2017-08-28 09:53] LABS: ALBUMIN 3.4 g/dl (3.4-5.0); ALK PHOS 88 U/L (45-117); ANION GAP 9 (8-16); BILIRUBIN,TOTAL 0.4 mg/dL (0.2-1.0); BLOOD UREA NITROGEN 16 mg/dL (7-18); CALCIUM 8.1 mg/dL (8.5-10.1); CO2 25 mmol/L (21-32); CREATININE 0.9 mg/dL (0.7-1.3); GLUCOSE,RANDOM 143 mg/dL (74-106); SGOT/AST 13 U/L (15-37); SGPT/ALT 16 U/L (12-78); TOT PROT 6.4 g/dl (6.4-8.2)
[2017-08-28] MEDS ORDERED: BUPRENORPHINE/NALOXONE 8 MG/2 MG FILM PACKET SL SCH (10:00)
[2017-08-28] MEDS: PRENATAL VITAMINS W/ FOLIC ACID TABLET (FP) PO SCH (10:09)
[2017-08-28] MEDS: NICOTINE 14 MG/24 HOURS TOPICAL PATCH TD SCH (10:10)
--- NOTE | 2017-08-28 11:05 | HP ---
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 Medical History: Reports a good phsyical health, smokes cigaretets 10 a day, on suboxone trx. Psychiatric History: Reports seing a psychiatrist to address anxiety and was out on Klonopin, states stopped it (was on LIbrium while in group home) a week ago, states he is on Trazodone for insomnia , currently feeling very anxious. Physical/Sexual Abuse/Trauma History: Denies history of sexual,physical and verbal abuse. Vital Signs: Vital Signs - 24 hr 08/27/17 08/27/17 08/28/17 15:56 19:39 00:30 Temperature 98.3 F Pulse Rate 78 71 Respiratory 20 20 18 Rate Blood Pressure 116/68 130/76 08/28/17 08/28/17 03:30 06:56 Temperature 97.6 F Pulse Rate 57 L Respiratory 18 18 Rate Blood Pressure 106/71 Allergies/Adverse Reactions: Allergies Allergy/AdvReac Type Severity Reaction Status Date / Time No Known Drug Allergies Allergy Verified 08/27/17 18:16 orange juice Allergy Verified 08/27/17 16:36 Date of last physical exam: 08/24/17 Concur with the findings of this exam: Yes - Substance Abuse/Tx History Hx Alcohol Use: No Hx Substance Use: Yes Substance Use Type: Cocaine (used last week 1 gr), Heroin (4-5 bags injecting ) , Tranquilizers (klonopin 1 mg daily, states was prescribed.) Hx Substance Use Treatment: Yes (detox. [facility]) Mental Status Exam - Mental Status Exam Alert and Oriented to: Time, Place, Person Cognitive Function: Grossly Intact Patient Appearance: Well Groomed Mood: Sad, Anxious Affect: Appropriate, Mood Congruent Patient Behavior: Appropriate, Cooperative Speech Pattern: Clear, Appropriate Voice Loudness: Normal Thought Process: Intact, Goal Oriented Thought Disorder: Not Present Hallucinations: Denies Suicidal Ideation: Denies Homicidal Ideation: Denies Insight/Judgement: Fair Sleep: Fair Appetite: Fair, Weight loss (lost about 17 lbs over 2-3 months) Muscle strength/Tone: Normal Gait/Station: Normal Psychiatric Findings - Problem List ([place] 1, 2,3) (1) Substance-induced anxiety disorder Current Visit: Yes Status: Acute (2) Opioid dependence on agonist therapy Current Visit: Yes Status: Acute (3) Heroin dependence Current Visit: No Status: Acute (4) Nicotine dependence Current Visit: No Status: Acute Qualifiers: Nicotine product type: cigarettes Substance use status: in withdrawal Qualified Code(s): F17.213 - Nicotine dependence, cigarettes, with withdrawal - Initial Treatment Plan Initial Treatment Plan: Will continue Trazodone and add Gabapentin 100 mg po tid (side-effects, benifts discussed). Monitor progress as needed.
--- NOTE | 2017-08-28 11:23 | EKG ---
Test Reason : Blood Pressure : / mmHG Vent. Rate : 066 BPM Atrial Rate : 066 BPM P-R Int : 160 ms QRS Dur : 088 ms QT Int : 402 ms P-R-T Axes : 073 054 067 degrees QTc Int : 421 ms NORMAL SINUS RHYTHM WITH SINUS ARRHYTHMIA NORMAL ECG WHEN COMPARED WITH ECG OF 10-JUL-2016 18:11, T WAVE INVERSION NO LONGER EVIDENT IN ANTERIOR LEADS T WAVE AMPLITUDE HAS DECREASED IN LATERAL LEADS Confirmed by NAYA CAMPOS MD ([id number]) on 08/28/2017 11:23:30 AM Referred By: Confirmed By:NAYA CAMPOS MD
[2017-08-28] MEDS: GABAPENTIN 100 MG CAPSULE (FP) PO SCH ×2 (14:21→21:15)
[2017-08-28] MEDS ORDERED: ONDANSETRON *ODT* 4 MG TABLET SL PRN (15:20)
--- NOTE | 2017-08-28 15:22 | PN ---
S Progress Note Note: Called by RN that patient is complaining of nausea and upset stomach. Patient consumed lunch without episode of vomiting. Will order Zofran prn for nausea and vomiting. Continue to monitor.
[2017-08-28] MEDS: traZODone HCL 100 MG TABLET (FP) PO SCH (21:15)
[2017-08-28] MEDS: THIAMINE HCL 100 MG TABLET (FP) PO SCH (21:15)
[2017-08-29] MEDS: GABAPENTIN 100 MG CAPSULE (FP) PO SCH ×3 (06:28→21:22)
[2017-08-29] MEDS: NICOTINE 14 MG/24 HOURS TOPICAL PATCH TD SCH (09:48)
[2017-08-29] MEDS: PRENATAL VITAMINS W/ FOLIC ACID TABLET (FP) PO SCH (09:49)
[2017-08-29] MEDS: BUPRENORPHINE/NALOXONE 8 MG/2 MG FILM PACKET SL SCH ×2 (09:49→21:23)
[2017-08-29] MEDS: traZODone HCL 100 MG TABLET (FP) PO SCH (21:22)
[2017-08-29] MEDS: THIAMINE HCL 100 MG TABLET (FP) PO SCH (21:23)
[2017-08-30] MEDS: GABAPENTIN 100 MG CAPSULE (FP) PO SCH ×3 (06:30→21:13)
[2017-08-30] MEDS: PRENATAL VITAMINS W/ FOLIC ACID TABLET (FP) PO SCH (09:41)
[2017-08-30] MEDS: BUPRENORPHINE/NALOXONE 8 MG/2 MG FILM PACKET SL SCH ×2 (09:41→21:13)
[2017-08-30] MEDS: NICOTINE 14 MG/24 HOURS TOPICAL PATCH TD SCH (09:42)
[2017-08-30] MEDS: traZODone HCL 100 MG TABLET (FP) PO SCH (21:13)
[2017-08-30] MEDS: THIAMINE HCL 100 MG TABLET (FP) PO SCH (21:13)
[2017-08-31] MEDS: GABAPENTIN 100 MG CAPSULE (FP) PO SCH ×3 (06:05→21:13)
[2017-08-31] MEDS: PRENATAL VITAMINS W/ FOLIC ACID TABLET (FP) PO SCH (09:41)
[2017-08-31] MEDS: BUPRENORPHINE/NALOXONE 8 MG/2 MG FILM PACKET SL SCH (09:41)
[2017-08-31] MEDS: NICOTINE 14 MG/24 HOURS TOPICAL PATCH TD SCH (09:41)
--- NOTE | 2017-08-31 12:20 | PN ---
[facility] Progress Note Note: PATIENT REQUESTING SUBOXONE TO BE DECREASED TO 8MG DAILY. PATIENT CURRENTLY ON 16MG/DAILY BUT STATES HE DOES NOT WANT TO CONTINUE ON THIS DOSE 8MG DAILY WAS EFFECTIVE IN PAST. EXPLAINED RISK FACTORS OF REOCCURRENCE OF WITHDRAWAL SYMPTOMS AND CRAVINGS WITH MEDICATION REDUCTION. PATIENT VERBALIZED UNDERSTANDING OF RISK FACTORS BUT CONTINUED TO REQUEST A REDUCTION OF SUBOXONE TO 8MG DAILY. MEDICATION ADJUSTED PER PATIENT REQUEST.
[2017-08-31] MEDS: THIAMINE HCL 100 MG TABLET (FP) PO SCH (21:13)
[2017-08-31] MEDS: traZODone HCL 100 MG TABLET (FP) PO SCH (21:13)
[2017-09-01] MEDS: GABAPENTIN 100 MG CAPSULE (FP) PO SCH ×3 (06:20→21:26)
[2017-09-01] MEDS: BUPRENORPHINE/NALOXONE 8 MG/2 MG FILM PACKET SL SCH (09:59)
[2017-09-01] MEDS: NICOTINE 14 MG/24 HOURS TOPICAL PATCH TD SCH (09:59)
[2017-09-01] MEDS: PRENATAL VITAMINS W/ FOLIC ACID TABLET (FP) PO SCH (09:59)
--- NOTE | 2017-09-01 12:39 | PN ---
S Progress Note Note: patient requested BGM BID check d/t familial hx of DM. Last random glucose 143. Vital Signs Temperature 97.8 F 09/01/17 06:41 Pulse Rate 80 09/01/17 06:41 Respiratory Rate 18 09/01/17 06:41 Blood Pressure 111/59 09/01/17 06:41 O2 Sat by Pulse Oximetry (%) Laboratory Last Values WBC 7.5 K/mm3 (4.0-10.0) 08/28/17 07:00 RBC 4.66 M/mm3 (4.00-5.60) 08/28/17 07:00 Hgb 13.7 GM/dL (11.7-16.9) 08/28/17 07:00 Hct 40.1 % (35.4-49) 08/28/17 07:00 MCV 86.0 fl (80-96) 08/28/17 07:00 MCH 29.4 pg (25.7-33.7) 08/28/17 07:00 MCHC 34.2 g/dl (32.0-35.9) 08/28/17 07:00 RDW 13.4 % (11.9-15.9) 08/28/17 07:00 Plt Count 316 K/MM3 (134-434) D 08/28/17 07:00 MPV 8.1 fl (7.5-11.1) D 08/28/17 07:00 Sodium 142 mmol/L (136-145) 08/28/17 07:00 Potassium 4.2 mmol/L (3.5-5.1) 08/28/17 07:00 Chloride 108 mmol/L (98-107) H 08/28/17 07:00 Carbon Dioxide 25 mmol/L (21-32) 08/28/17 07:00 Anion Gap 9 (8-16) 08/28/17 07:00 BUN 16 mg/dL (7-18) 08/28/17 07:00 Creatinine 0.9 mg/dL (0.7-1.3) 08/28/17 07:00 Creat Clearance w eGFR > 60 (>60) 08/28/17 07:00 Random Glucose 143 mg/dL (74-106) H D 08/28/17 07:00 Calcium 8.1 mg/dL (8.5-10.1) L 08/28/17 07:00 Total Bilirubin 0.4 mg/dL (0.2-1.0) D 08/28/17 07:00 AST 13 U/L (15-37) L 08/28/17 07:00 ALT 16 U/L (12-78) 08/28/17 07:00 Alkaline Phosphatase 88 U/L (45-117) 08/28/17 07:00 Total Protein 6.4 g/dl (6.4-8.2) 08/28/17 07:00 Albumin 3.4 g/dl (3.4-5.0) 08/28/17 07:00 Urine Color Yellow 08/28/17 06:55 Urine Appearance Slcloudy 08/28/17 06:55 Urine pH 5.0 (5.0-8.0) D 08/28/17 06:55 Ur Specific [place] 1.031 (1.001-1.035) 08/28/17 06:55 Urine Protein Negative (NEGATIVE) 08/28/17 06:55 Urine Glucose (UA) Negative (NEGATIVE) 08/28/17 06:55 Urine Ketones Negative (NEGATIVE) 08/28/17 06:55 Urine Blood Negative (NEGATIVE) 08/28/17 06:55 Urine Nitrite Negative (NEGATIVE) 08/28/17 06:55 Urine Bilirubin Negative (<2.0 mg/dL) 08/28/17 06:55 Urine Urobilinogen 2.0 mg/dL (0.2-1.0) 05 06:55 Ur Leukocyte Esterase Negative (NEGATIVE) 08/28/17 06:55 RPR Titer Nonreactive (NONREACTIVE) 08/28/17 07:00 HIV 1&2 Antibody Screen Negative 08/28/17 07:00 HIV P24 Antigen Negative 08/28/17 07:00 Hemoglobin A1C check for DM continue to monitor
[2017-09-01] MEDS: THIAMINE HCL 100 MG TABLET (FP) PO SCH (21:26)
[2017-09-01] MEDS: traZODone HCL 100 MG TABLET (FP) PO SCH (21:26)
[2017-09-02] MEDS: GABAPENTIN 100 MG CAPSULE (FP) PO SCH ×3 (06:36→21:14)
[2017-09-02] MEDS: NICOTINE 14 MG/24 HOURS TOPICAL PATCH TD SCH (10:01)
[2017-09-02] MEDS: PRENATAL VITAMINS W/ FOLIC ACID TABLET (FP) PO SCH (10:01)
[2017-09-02] MEDS: BUPRENORPHINE/NALOXONE 8 MG/2 MG FILM PACKET SL SCH (10:01)
--- NOTE | 2017-09-02 14:26 | PN ---
[facility] Progress Note Note: Patient lab results show AIC 7.6. Patient informed and is to be transferred to [facility] tomorrow. Patient educated regarding diet modifications and instructed to inform MD at [facility] of AIC results for follow up and treatment. Patient verbalized understanding of education provided.
[2017-09-02] MEDS: traZODone HCL 100 MG TABLET (FP) PO SCH (21:14)
[2017-09-02] MEDS: THIAMINE HCL 100 MG TABLET (FP) PO SCH (21:14)
[2017-09-03] MEDS: GABAPENTIN 100 MG CAPSULE (FP) PO SCH (06:45)
[2017-09-03 07:09] VITALS: BP 105/76; PULSE 81; TEMP 97.7
[2017-09-03] MEDS: BUPRENORPHINE/NALOXONE 8 MG/2 MG FILM PACKET SL SCH (09:44)
[2017-09-03] MEDS: NICOTINE 14 MG/24 HOURS TOPICAL PATCH TD SCH (09:44)
[2017-09-03] MEDS: PRENATAL VITAMINS W/ FOLIC ACID TABLET (FP) PO SCH (09:44)
--- NOTE | 2017-09-03 10:39 | PN ---
Psychiatric Progress Note Vital Signs: Vital Signs Period Temp Pulse Resp BP Sys/Granados Pulse Ox Last 24 Hr 97.7 F 81 16-18 105/76 Date of Session: 09/03/17 Chief Complaint:: discharge visit HPI: Patient has addressed opioid, nicotine dependence comorbid substance induced anxiety disorder. ROS: wnl Current Medications: Active Medications Generic Name Dose Route Start Last Admin Trade Name Freq PRN Reason Stop Dose Admin Acetaminophen 650 mg 08/27/17 18:13 09/01/17 09:58 Tylenol - PO 650 mg Q4H PRN Administration FEVER Al Hydroxide/Mg Hydroxide 30 ml 08/27/17 18:13 08/28/17 18:22 Mylanta Oral Suspension - PO 30 ml Q6H PRN Administration DYSPEPSIA Buprenorphine/Naloxone 1 each 09/01/17 10:00 09/03/17 09:44 Suboxone 8mg/2mg Sl Film - SL 09/04/17 09:59 1 each DAILY SARBJIT Administration Eucalyptus/Menthol/Phenol/Sorbitol 1 each 08/27/17 18:13 Cepastat Lozenge - MM Q4H PRN SORE THROAT Gabapentin 100 mg 08/28/17 14:00 09/03/17 06:45 Neurontin - PO 100 mg TID SARBJIT Administration Guaifenesin 10 ml 08/27/17 18:13 Robitussin Dm - PO Q6H PRN COUGH Hydroxyzine Pamoate 50 mg 08/27/17 18:13 Vistaril - PO Q4H PRN AGITATION Ibuprofen 400 mg 08/27/17 18:13 Motrin - PO Q6H PRN Pain level 4-6 Loperamide HCl 4 mg 08/27/17 18:13 Imodium - PO Q6H PRN DIARRHEA Magnesium Citrate 300 ml 08/27/17 18:13 Citroma - PO Q48H PRN CONSTIPATION Magnesium Hydroxide 30 ml 08/27/17 18:13 Milk Of Magnesia - PO DAILY PRN CONSTIPATION Melatonin 5 mg 08/27/17 22:00 Melatonin PO HS PRN INSOMNIA Nicotine 14 mg 08/28/17 10:00 09/03/17 09:44 Nicoderm Patch - TD Not Given DAILY SARBJIT Nicotine Polacrilex 2 mg 08/27/17 18:13 Nicorette Gum - BC Q2H PRN NICOTINE REPLACEMENT RX Ondansetron HCl 8 mg 08/28/17 15:20 Zofran Odt - SL Q8H PRN NAUSEA AND/OR VOMITING Multivit/Folic Acid/Iron 1 tab 08/28/17 10:00 09/03/17 09:44 Vitamins (Sjr) - PO 1 tab DAILY SARBJIT Administration Pseudoephedrine/Triprolidine 1 combo 08/27/17 18:13 Actifed - PO TID PRN NASAL CONGESTION Thiamine HCl 100 mg 08/27/17 22:00 09/02/17 21:14 Vitamin B1 - PO 100 mg HS SARBJIT Administration Trazodone HCl 100 mg 08/27/17 22:00 09/02/17 21:14 Desyrel - PO 100 mg HS SARBJIT Administration Current Side Effect: No Lab tests ordered: No Lab tests reviewed: Yes Provider note:: Patient has completed today his treatment and met his goals, will continue to address his issues at [facility] inpatient treatment program. Patient gained insights into importance of changing attitudes and utilization of supports available to prevent relapses. Medications Gabapentin and Trazodone well tolerated, scripts provided for 30 days suply. Patient is stable for discharge today. Total face to face time:: 15 Mental Status Exam - Mental Status Exam Alert and Oriented to: Time, Place, Person Cognitive Function: Good Patient Appearance: Well Groomed Mood: Hopeful Affect: Appropriate, Mood Congruent Patient Behavior: Appropriate, Cooperative Speech Pattern: Clear, Appropriate Voice Loudness: Normal Thought Process: Intact, Goal Oriented Thought Disorder: Not Present Hallucinations: Denies Suicidal Ideation: Denies Homicidal Ideation: Denies Insight/Judgement: Fair Sleep: Fair Appetite: Fair Muscle strength/Tone: Normal Gait/Station: Normal Psychiatric Treatment Plan - Problem List (1) Substance-induced anxiety disorder Current Visit: Yes (2) Opioid dependence on agonist therapy Current Visit: Yes (3) Heroin dependence Current Visit: No (4) Nicotine dependence Current Visit: No Qualifiers: Nicotine product type: cigarettes Substance use status: in withdrawal Qualified Code(s): F17.213 - Nicotine dependence, cigarettes, with withdrawal
== END 2017-09-03 10:15 | disposition home or self-care (01) | DRG 772 ==
LOC: YASAS 14:17 → Y5N 17:14
PROVIDERS: ADMIT Psychiatry & Neurology Psychiatry; ATTEND Psychiatry & Neurology Psychiatry
PROC: HZ42ZZZ Group Counseling for Substance Abuse Treatment, Cognitive-Behavioral (ICD-10-PCS; principal; 2017-08-27)
DX: F11.20 Opioid dependence, uncomplicated (principal); F17.210 Nicotine dependence, cigarettes, uncomplicated; F19.280 Other psychoactive substance dependence with psychoactive substance-induced anxiety disorder
CPT/HCPCS: 36415; 80053; 81003; 83036; 85027; 86593; 87389; 93005; 93010

== ENCOUNTER 2018-11-08 21:46 | Emergency (ER) | payer OTHER ==
[2018-11-08 22:03] VITALS: BP 138/80; TEMP 98.2; BMI 23.6
--- NOTE | 2018-11-08 22:08 | PDOC ---
History of Present Illness - General Chief Complaint: Overdose Stated Complaint: OVERDOSE Time Seen by Provider: 11/08/18 22:08 Past History - Past Medical History Allergies/Adverse Reactions: Allergies Allergy/AdvReac Type Severity Reaction Status Date / Time No Known Drug Allergies Allergy Verified 11/08/18 22:03 orange juice Allergy Verified 11/08/18 22:03 Home Medications: Ambulatory Orders Buprenorphine/Naloxone [Suboxone 8Mg/2Mg Sl Film -] 2 each SL DAILY #60 film MDD 2 09/02/17 Gabapentin [Neurontin -] 100 mg PO TID #90 capsule 09/02/17 traZODone HCL [Desyrel -] 100 mg PO HS #30 tablet 09/02/17 Anemia: No Asthma: No Cancer: No Cardiac Disorders: No CVA: No COPD: No CHF: No Dementia: No Diabetes: No GI Disorders: No Disorders: No HTN: No Hypercholesterolemia: No Kidney Stones: No Liver Disease: No Seizures: No Thyroid Disease: No - Surgical History Abdominal Surgery: No Appendectomy: No Cardiac Surgery: No Cholecystectomy: No Lung Surgery: No Neurologic Surgery: No Orthopedic Surgery: No - Reproductive History Testicular Surgery: No - Suicide/Smoking/Psychosocial Hx Smoking History: Unknown if ever smoked Have you smoked in the past 12 months: Yes Number of Cigarettes Smoked Daily: 10 Cigars Per Day: 0 'Breaking Loose' booklet given: 08/27/17 Hx Alcohol Use: No Drug/Substance Use Hx: Yes Substance Use Type: Cocaine (used last week 1 gr), Heroin (4-5 bags injecting ) , Tranquilizers (klonopin 1 mg daily, states was prescribed.) Hx Substance Use Treatment: Yes (detox. [facility]) *Physical Exam - Vital Signs Last Vital Signs Temp Pulse Resp BP Pulse Ox 98.2 F 128 H 20 138/80 100 11/08/18 22:01 11/08/18 22:01 11/08/18 22:01 11/08/18 22:01 11/08/18 22:01 ED Treatment Course - LABORATORY CBC & Chemistry Diagram: 11/08/18 22:45 11/08/18 22:45 Medical Decision Making - Medical Decision Making 11/08/18 22:09 HPI 28 year old with history of cocaine and heroin abuse who presents s/p cocaine overdose. [facility] has been shooting cocaine approx 3x a week and was found today by his family in the bathroom shaking on the ground. His brother who is a dental hygiene teacher gave him narcan and the patient aroused. The patient denies use of any other recreational drugs. He has no other complaints. He only reports cigarette use. Last heroin use August 2017. ROS GENERAL/CONSTITUTIONAL: No fever or chills. No weakness. HEAD, EYES, EARS, NOSE AND THROAT: No change in vision. No ear pain or discharge. No sore throat. CARDIOVASCULAR: No chest pain or shortness of breath RESPIRATORY: No cough, wheezing, or hemoptysis. GASTROINTESTINAL: No nausea, vomiting, diarrhea or constipation. MUSCULOSKELETAL: No joint or muscle swelling or pain. No neck or back pain. NEUROLOGIC: No headache, vertigo, loss of consciousness, or change in strength/ sensation. PE GENERAL: Awake, alert, and fully oriented, in no acute distress HEAD: No signs of trauma, normocephalic, atraumatic EYES: PERRLA 3mm->2mm, EOMI, sclera anicteric, conjunctiva clear ENT: Moist mucosa NECK: Normal ROM, supple LUNGS: No distress, speaks full sentences, clear to auscultation bilaterally HEART: Regular rate and rhythm, normal S1 and S2, no murmurs, rubs or gallops, peripheral pulses normal and equal bilaterally. ABDOMEN: Soft, nontender, normoactive bowel sounds. No guarding, no rebound. No masses EXTREMITIES : Normal inspection, Normal range of motion, no edema. No clubbing or cyanosis. NEUROLOGICAL: Cranial nerves II through XII grossly intact. Normal speech, normal gait, no focal sensorimotor deficits SKIN: Warm, Dry, normal turgor, no rashes or lesions noted MDM 28 year old with history of cocaine and heroin abuse who presents s/p cocaine overdose. DDX including but not limited to: polysubstance abuse vs overdose W/U: - cbc, cmp, salicylate, acetaminophen, ua, utox ED Course: If patient desires detox will sendpatient Will evaluate with erum and monitor for withdrawal symptoms Patient signed out to resident Dr. Alysa Granado, PGY2 Emergency Medicine *DC/Admit/Observation/Transfer Diagnosis at time of Disposition: Cocaine dependence - Referrals Referrals: Luana Moraes MD [Primary Care Provider] - - Patient Instructions - Post Discharge Activity
[2018-11-08 22:59] LABS: VENOUS PC02 38.3 mmHg (41-51); VENOUS PH 7.45 (7.31-7.41); VENOUS PO2 80.6 mmHg (30-40)
[2018-11-08 23:03] VITALS: PULSE 96
[2018-11-08 23:03] LABS: BASO % 0.3 % (0-2.0); EOS % 3.7 % (0-4.5); HEMATOCRIT 39.3 % (35.4-49); HEMOGLOBIN 13.5 GM/dL (11.7-16.9); LYMPH % 13.1 % (8-40); MCH 29.4 pg (25.7-33.7); MCHC 34.4 g/dl (32.0-35.9); MEAN CELL VOLUME 85.4 fl (80-96); NEUT % 78.9 % (42.8-82.8); PLATELET COUNT 306 K/MM3 (134-434); RDW 12.8 % (11.9-15.9); WHITE BLOOD COUNT 12.2 K/mm3 (4.0-10.0)
--- NOTE | 2018-11-08 23:05 | PDOC ---
*Physical Exam - Vital Signs Last Vital Signs Temp Pulse Resp BP Pulse Ox 98.2 F 96 H 18 138/80 98 11/08/18 22:01 11/08/18 23:02 11/08/18 23:02 11/08/18 22:01 11/08/18 23:02 - Physical Exam General Appearance: Yes: Nourished, Appropriately Dressed. No: Apparent Distress HEENT: positive: EOMI, ILDA Respiratory/Chest: positive: Lungs Clear, Normal Breath Sounds Cardiovascular: positive: Regular Rhythm, Regular Rate, S1, S2. negative: Edema , JVD, Murmur Gastrointestinal/Abdominal: positive: Normal Bowel Sounds, Flat. negative: Tender Musculoskeletal: negative: CVA Tenderness ED Treatment Course - LABORATORY CBC & Chemistry Diagram: 11/08/18 22:45 11/08/18 22:45 - ADDITIONAL ORDERS Additional order review: Laboratory Results 11/08/18 22:45 VBG pH 7.45 H POC VBG pCO2 38.3 L POC VBG pO2 80.6 H VBG HCO3 25.9 VBG O2 Sat (Mirtha) 95.9 H VBG Base Excess 2.3 H Medical Decision Making - Medical Decision Making 11/08/18 23:[address] Granado 28yo M h/o cocaine, heroin use. 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 Needed 2 doses of narcan. currently tachycardic. labs pending 11/09/18 02:00 labs significant for wbc 12.2 (could be elevated from recent use) afebrile. no acute intervention given due to iv drug use and h/o bz dependence. ekg: nsr at 96, pr 166, qtc 454. no lemuel or depressions. last pmd visit was roughly 2m ago. ua shows 3+ blood, rbc, casts and protein. renal us ordered. US: no hydro, massess or other pathology. Pt denies flank pain, gross hematuria. has pmd f/u. given nephrology and uro f/u. vitals have normalized. safe for dc home. given return precautions. *DC/Admit/Observation/Transfer Diagnosis at time of Disposition: Cocaine dependence Qualifiers: Substance use status: uncomplicated Qualified Code(s): F14.20 - Cocaine dependence, uncomplicated Hematuria Qualifiers: Hematuria type: unspecified type Qualified Code(s): R31.9 - Hematuria, unspecified Proteinuria Qualifiers: Proteinuria type: unspecified Qualified Code(s): R80.9 - Proteinuria, unspecified - Discharge Dispostion Disposition: HOME Condition at time of disposition: Good Decision to Admit order: No - Referrals Referrals: Jesus Webb MD [Staff Physician] - Luana Moraes MD [Primary Care Provider] - Cyn Alex MD [Staff Physician] - - Patient Instructions Printed Discharge Instructions: DI for Cocaine Use Disorder Additional Instructions: You were seen in the emergency room today for cocaine use. Your blood tests and ekg are normal. The urine showed blood and protein. The ultrasound results were given to you. I highly recommend detox. You can go to [address] [place] [address] and walk in anytime after 8am everyday. I also highly recommend that you see a urologist (information is provided below) because you have blood and protein in the urine. Please make an appointment with your primary care doctor soon. Please come back to the emergency room if you use again, you have chest pain, you have flank pain, you have urinary problems or if any new concerning symptom develops. Thank you - Post Discharge Activity
[2018-11-08 23:30] LABS: ALBUMIN 3.5 g/dl (3.4-5.0); ALK PHOS 89 U/L (45-117); ANION GAP 6 MMOL/L (8-16); BILIRUBIN,TOTAL 0.2 mg/dL (0.2-1); BLOOD UREA NITROGEN 9.9 mg/dL (7-18); CALCIUM 8.6 mg/dL (8.5-10.1); CHLORIDE 105 mmol/L (98-107); CO2 28 mmol/L (21-32); CREATININE 1.1 mg/dL (0.55-1.3); GLUCOSE,RANDOM 149 mg/dL (74-106); POTASSIUM 3.7 mmol/L (3.5-5.1); SGOT/AST 14 U/L (15-37); SGPT/ALT 17 U/L (13-61); SODIUM 139 mmol/L (136-145); TOT PROT 7.1 g/dl (6.4-8.2)
[2018-11-09 00:01] LABS: EPI CELLS 6.6 /HPF (0-5/HPF); HYALINE CASTS 111 /lpf (0-8); PH,URINE 5.5 (5.0-8.0); URINE APPEARANCE TURBID; URINE BACTERIA 10.8 /hpf (NEGATIVE); URINE BILIRUBIN NEGATIVE (NEGATIVE); URINE COLOR DK YELLOW; URINE GLUCOSE (UA) NEGATIVE (NEGATIVE); URINE KETONE TRACE (NEGATIVE); URINE LEUK ESTERASE NEGATIVE (NEGATIVE); URINE NITRITE NEGATIVE (NEGATIVE); URINE PROTEIN 2+ (NEGATIVE); URINE RBC 91 /hpf (0-4)
[2018-11-09 00:48] LABS: METHADONE, UR NEGATIVE ng/ml (CUTOFF=300); OPIATES, URI NEGATIVE ng/ml (CUTOFF=300); PHENCYCLIDINE,URINE NEGATIVE ng/ml (CUTOFF=25); URINE AMPHETAMINES NEGATIVE ng/ml (CUTOFF=500); URINE BARBITURATES NEGATIVE ng/ml (CUTOFF=200)
[2018-11-09 00:50] LABS: URINE BENZODIAZEPINES POSITIVE ng/ml (CUTOFF=200)
[2018-11-09 00:51] LABS: COCAINE, UR POSITIVE ng/ml (CUTOFF=300)
--- NOTE | 2018-11-09 01:34 | PDOC ---
Documentation entered by Charles Carcamo SCRIBE, acting as scribe for Nisha Zuniga MD. Nisha Zuniga MD: This documentation has been prepared by the Carlos Alberto daniels Elijah, SCRIBE, under my direction and personally reviewed by me in its entirety. I confirm that the documentation accurately reflects all work, treatment, procedures, and medical decision making performed by me. Attending Attestation - Resident Resident Name: Marisela Granado - ED Attending Attestation I have performed the following: I have examined & evaluated the patient, The case was reviewed & discussed with the resident, I agree w/resident's findings & plan - HPI HPI: 11/08/18 23:16 Patient is a 28 year old male with no reported past medical history who presents to the ED for an evaluation after an overdose. Patient reports that he was using cocaine in the bathroom when he was found on the floor by his brother who gave him NARCAN when the patient began to become responsive again. At this time the patient reports no other symptoms other than feeling jittery. Allergies: NKDA, [place] Juice PCP: Dr. Moraes - Physicial Exam PE: 11/08/18 23:24 GENERAL: +Thin Awake, alert, and fully oriented, in no acute distress HEAD: No signs of trauma EYES: PERRLA, EOMI, sclera anicteric, conjunctiva clear ENT: Auricles normal inspection, hearing grossly normal, nares patent, oropharynx clear without exudates. Moist mucosa NECK: Normal ROM, supple, no lymphadenopathy, JVD, or masses LUNGS: Breath sounds equal, clear to auscultation bilaterally. No wheezes, and no crackles HEART: +Tachycardic. normal S1 and S2, no murmurs, rubs or gallops ABDOMEN: Soft, nontender, normoactive bowel sounds. No guarding, no rebound. No masses EXTREMITIES: +Tracks on Arms. Normal range of motion, no edema. No clubbing or cyanosis. No cords, erythema, or tenderness NEUROLOGICAL: Cranial nerves II through XII grossly intact. Normal speech, normal gait SKIN: Warm, Dry, normal turgor, no rashes or lesions noted. - Medical Decision Making 11/09/18 00:09 28 -year-old male with a history of opiate abuse injected cocaine tonight was found down by family member who gave him Narcan. Upon arrival, he was tachycardic at 128 bpm but since that time his heart rate decreased to the 90s He is not in respiratory distress at this time and he is alert and conversant 11/09/18 01:08 tox screen positive for cocaine and benzos UA rbcs>100, +3 blood 11/09/18 01:10 pt denies any flank pain and inspection of his back did not reveal any ecchymosis. His cbc is unremarkable 11/09/18 01:56 Renal ultrasound : normal kidneys, no masses Also his glucose was 149 and when his prior ED labs were reviewed he has had hyperglycemia since 2015. His mother is a diabetic. Pt informed and states he has a regular physician to follow up with pt will be referred to urology, Dr Reilly IMP cocaine abuse, microscopic hematuria ,mild hyperglycemia pt is alert, normal vital signs. Pt encouraged to seek rehab 11/09/18 02:00
--- NOTE | 2018-11-09 09:28 | EKG ---
Test Reason : Blood Pressure : / mmHG Vent. Rate : 096 BPM Atrial Rate : 096 BPM P-R Int : 166 ms QRS Dur : 090 ms QT Int : 360 ms P-R-T Axes : 074 026 045 degrees QTc Int : 454 ms NORMAL SINUS RHYTHM WITH SINUS ARRHYTHMIA NORMAL ECG WHEN COMPARED WITH ECG OF 27-AUG-2017 23:35, NO SIGNIFICANT CHANGE WAS FOUND Confirmed by Graeme Collins MD ([id number]) on 11/09/2018 9:28:12 AM Referred By: Confirmed By:Graeme Collins MD
== END 2018-11-09 02:01 | disposition home or self-care (01) ==
LOC: JER 21:46
DX: T40.5X1A Poisoning by cocaine, accidental (unintentional), initial encounter (principal); F14.20 Cocaine dependence, uncomplicated; F11.10 Opioid abuse, uncomplicated; F13.10 Sedative, hypnotic or anxiolytic abuse, uncomplicated; R31.9 Hematuria, unspecified; R80.9 Proteinuria, unspecified
CPT/HCPCS: 36415; 76775-TC; 80053; 80307; 81003; 82803; 85025; 93005; 93010; 99283-25

== ENCOUNTER 2019-01-28 20:44 | Emergency (ER) | payer OTHER ==
[2019-01-28 21:05] VITALS: BP 130/83; PULSE 114; TEMP 98.5; BMI 21.7
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
[2019-01-28] MEDS ORDERED: SODIUM CHLORIDE 0.9% 500 ML INFUS.BAG IV ONE (21:53)
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
--- NOTE | 2019-01-29 20:19 | EKG ---
Test Reason : Blood Pressure : / mmHG Vent. Rate : 103 BPM Atrial Rate : 103 BPM P-R Int : 162 ms QRS Dur : 086 ms QT Int : 356 ms P-R-T Axes : 069 046 053 degrees QTc Int : 466 ms SINUS TACHYCARDIA POSSIBLE LEFT ATRIAL ENLARGEMENT BORDERLINE ECG WHEN COMPARED WITH ECG OF 08-NOV-2018 22:47, NO SIGNIFICANT CHANGE WAS FOUND Confirmed by MD KAITLIN, YAN ([id number]) on 01/29/2019 8:19:38 PM Referred By: Confirmed By:YAN MADRIGAL MD
== END 2019-01-29 01:35 ==
LOC: JER 20:44
DX: R55 Syncope and collapse (principal); S00.531A Contusion of lip, initial encounter; V53.5XXA Driver of pick-up truck or van injured in collision with car, pick-up truck or van in traffic accident, initial encounter; Y92.481 Parking lot as the place of occurrence of the external cause; Y93.89 Activity, other specified; Y99.0 Civilian activity done for income or pay; F41.9 Anxiety disorder, unspecified; F32.9 Major depressive disorder, single episode, unspecified; F11.10 Opioid abuse, uncomplicated; F14.10 Cocaine abuse, uncomplicated; F17.210 Nicotine dependence, cigarettes, uncomplicated; Z91.018 Allergy to other foods
CPT/HCPCS: 70450-TC; 93005; 93010; 99283-25